=== PATIENT | male | born 1990 | race Caucasian/White ===

== ENCOUNTER 2016-11-23 19:58 | Emergency (ER) | payer OTHER ==
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
[2016-11-23 20:16] VITALS: BP 118/80; PULSE 83; TEMP 98.6; BMI 31.9
== END 2016-11-23 21:27 | disposition home or self-care (01) ==
LOC: FER 19:58
PROC: 2W3SX1Z Immobilization of Right Foot using Splint (ICD-10-PCS; principal; 2016-11-23)
DX: S93.401A Sprain of unspecified ligament of right ankle, initial encounter (principal); W20.8XXA Other cause of strike by thrown, projected or falling object, initial encounter; Y93.89 Activity, other specified; Y92.410 Unspecified street and highway as the place of occurrence of the external cause
CPT/HCPCS: 73610-TC-RT; 73630-TC-RT; 99281-25

== ENCOUNTER 2019-02-01 19:55 | Emergency (ER) | payer OTHER ==
--- NOTE | 2019-02-01 19:59 | PDOC ---
Rapid Medical Evaluation Time Seen by Provider: 02/01/19 19:57 Medical Evaluation: Allergies Allergy/AdvReac Type Severity Reaction Status Date / Time No Known Allergies Allergy Verified 11/23/16 20:08 02/01/19 19:57 CC: left eye pain after removing contact lenses PE: Left conjunctival erythema Orders: nothing Patient to proceed to ER for evaluation. Discharge Disposition - Diagnosis Redness of eye, left - Referrals Referrals: Jeanette Hicks MD [Primary Care Provider] - - Patient Instructions - Post Discharge Activity
[2019-02-01 20:11] VITALS: BP 121/68; PULSE 68; TEMP 98.2; BMI 25.0
[2019-02-01] MEDS ORDERED: TETRACAINE 0.5% OPHTH SOLN 2 ML BOTTLE ONE (20:54)
[2019-02-01] MEDS ORDERED: FLUORESCEIN NA 1 EA STRIP ONE (20:55)
--- NOTE | 2019-02-01 21:07 | PDOC ---
History of Present Illness - General Chief Complaint: Eye Problem Stated Complaint: Eye Problem Time Seen by Provider: 02/01/19 19:57 - History of Present Illness Initial Comments: 02/01/19 21:04 35 y/o M w/o CM presents for evaluation of L eye irritation after removing a contact lense Past History - Past Medical History Allergies/Adverse Reactions: Allergies Allergy/AdvReac Type Severity Reaction Status Date / Time No Known Allergies Allergy Verified 02/01/19 19:59 Home Medications: Ambulatory Orders Diclofenac Sodium [Voltaren -] 75 mg PO BID PRN #14 tablet. 11/23/16 Tobramycin 0.3% Ophth Soln [Tobrex Ophthalmic Solution -] 1 drop OS Q4HWA 5 Days #1 bottle 02/01/19 COPD: No - Psycho Social/Smoking Cessation Hx Smoking History: Never smoked Have you smoked in the past 12 months: No Hx Alcohol Use: No Drug/Substance Use Hx: No Substance Use Type: None Review of Systems - Review of Systems HEENTM: Yes: See HPI, Tearing *Physical Exam - Vital Signs Last Vital Signs Temp Pulse Resp BP Pulse Ox 98.2 F 68 16 121/68 9 L 02/01/19 20:00 02/01/19 20:00 02/01/19 20:00 02/01/19 20:00 02/01/19 20:00 - Physical Exam Comments: 02/01/19 21:05 L eye was instilled with tetracaine and stained with floricine, there is a very small corneal abrasion at the 6 o'clock position Medical Decision Making - Medical Decision Making 02/01/19 21:05 tobramycin for corneal abrasion Discharge - Discharge Information Problems reviewed: Yes Clinical Impression/Diagnosis: Redness of eye, left, Corneal abrasion due to contact lens Condition: Stable Disposition: HOME - Admission No - Follow up/Referral Referrals: Jeanette Hicsk MD [Primary Care Provider] - Leanna Combs MD [Staff Physician] - - Patient Discharge Instructions Patient Printed Discharge Instructions: Corneal Abrasion, DI for Corneal Abrasion Additional Instructions: Please use the antibiotic drops as directed and without fail follow up with optomology in 1-2 days. Return to the emergency room should symptoms worsen. - Post Discharge Activity
== END 2019-02-01 21:34 | disposition home or self-care (01) ==
LOC: JERFT 19:55 → JER 19:55 → JERFT 21:34
DX: S05.02XA Injury of conjunctiva and corneal abrasion without foreign body, left eye, initial encounter (principal); X58.XXXA Exposure to other specified factors, initial encounter; Y93.89 Activity, other specified; Y92.89 Other specified places as the place of occurrence of the external cause
CPT/HCPCS: 99282-25

== ENCOUNTER 2019-07-10 19:14 | Emergency (ER) | payer OTHER ==
[2019-07-10 19:30] VITALS: BP 126/81; PULSE 82; TEMP 98.1; BMI 27.2
--- NOTE | 2019-07-10 21:40 | PDOC ---
Documentation entered by Stella Harper SCRIBE, acting as scribe for Reza Lynch MD. Reza Lynch MD: This documentation has been prepared by the [place] Maria, SCRIBE, under my direction and personally reviewed by me in its entirety. I confirm that the documentation accurately reflects all work, treatment, procedures, and medical decision making performed by me. History of Present Illness - General Chief Complaint: Sore Throat Stated Complaint: SORE THROAT Time Seen by Provider: 07/10/19 19:20 History Source: Patient Exam Limitations: No Limitations - History of Present Illness Initial Comments: 07/10/19 19:29 The patient is a 28 year old male with no significant past medical history who presents to the emergency department with a sore throat. As per patient, he reports going to [place] last week and later began to develop cold-like symptoms which has since resolved with the exception of the sore throat. He reports taking tylenol with no relief of symptoms prompting him to the ER. Past History - Past Medical History Allergies/Adverse Reactions: Allergies Allergy/AdvReac Type Severity Reaction Status Date / Time No Known Allergies Allergy Verified 02/01/19 19:59 Home Medications: Ambulatory Orders Diclofenac Sodium [Voltaren -] 75 mg PO BID PRN #14 tablet. 11/23/16 Tobramycin 0.3% Ophth Soln [Tobrex Ophthalmic Solution -] 1 drop OS Q4HWA 5 Days #1 bottle 02/01/19 Ibuprofen [Ibu] 600 mg PO TID PRN #15 tablet 07/10/19 Pseudoephedrine HCl [Pseudoephedrine ER] 120 mg PO BID PRN #12 tablet.er 07/10/19 COPD: No - Psycho Social/Smoking Cessation Hx Smoking History: Never smoked Have you smoked in the past 12 months: No Hx Alcohol Use: Yes (OCCAS) Drug/Substance Use Hx: No Substance Use Type: None Review of Systems - Review of Systems Able to Perform ROS?: Yes Comments:: 07/10/19 19:29 GENERAL/CONSTITUTIONAL: No fever or chills. No weakness. HEAD, EYES, EARS, NOSE AND THROAT:+sore throat. No change in vision. No ear pain or discharge. CARDIOVASCULAR: No chest pain or shortness of breath. RESPIRATORY: No cough, wheezing, or hemoptysis. GASTROINTESTINAL: No nausea, vomiting, diarrhea or constipation. GENITOURINARY: No dysuria, frequency, or change in urination. MUSCULOSKELETAL: No joint or muscle swelling or pain. No neck or back pain. SKIN: No rash NEUROLOGIC: No headache, vertigo, loss of consciousness, or change in strength/sensation. ENDOCRINE: No increased thirst. No abnormal weight change. HEMATOLOGIC/LYMPHATIC: No anemia, easy bleeding, or history of blood clots. ALLERGIC/IMMUNOLOGIC: No hives or skin allergy. *Physical Exam - Physical Exam 07/10/19 19:30 GENERAL: Awake, alert, and fully oriented, in no acute distress HEAD: No signs of trauma EYES: PERRLA, EOMI, sclera anicteric, conjunctiva clear ENT: Auricles normal inspection, hearing grossly normal, nares patent, oropharynx clear without exudates. Moist mucosa. + maxillary tenderness NECK: Normal ROM, supple, no lymphadenopathy, JVD, or masses LUNGS: Breath sounds equal, clear to auscultation bilaterally. No wheezes, and no crackles HEART: Regular rate and rhythm, normal S1 and S2, no murmurs, rubs or gallops ABDOMEN: Soft, nontender, normoactive bowel sounds. No guarding, no rebound. No masses EXTREMITIES: Normal range of motion, no edema. No clubbing or cyanosis. No cor ds, erythema, or tenderness NEUROLOGICAL: Cranial nerves II through XII grossly intact. Normal speech, normal gait SKIN: Warm, Dry, normal turgor, no rashes or lesions noted. 07/11/19 06:23 Medical Decision Making - Medical Decision Making 07/11/19 06:22 sinusitis no evidence of pharyngitis nsaids decongestant PCP fu Discharge - Discharge Information Problems reviewed: Yes Clinical Impression/Diagnosis: Sinusitis Qualifiers: Sinusitis location: maxillary Chronicity: acute Recurrence: non-recurrent Qualified Code(s): J01.00 - Acute maxillary sinusitis, unspecified Condition: Good Disposition: HOME - Admission No - Additional Discharge Information Prescriptions: Ibuprofen [Ibu] 600 mg PO TID PRN #15 tablet PRN Reason: Pain Pseudoephedrine HCl [Pseudoephedrine ER] 120 mg PO BID PRN #12 tablet.er PRN Reason: congestion - Follow up/Referral - Patient Discharge Instructions Patient Printed Discharge Instructions: DI for Sinusitis - Post Discharge Activity
== END 2019-07-10 19:38 | disposition home or self-care (01) ==
LOC: FER 19:14
DX: J01.00 Acute maxillary sinusitis, unspecified (principal)
CPT/HCPCS: 99282-25

== ENCOUNTER 2022-06-03 08:04 | Emergency (ER) | payer OTHER ==
[2022-06-03 08:14] VITALS: BP 132/83; PULSE 95; RESP 20; TEMP 98.3; BMI 30.4
[2022-06-03] MEDS ORDERED: CEPHALEXIN MONOHYDRATE 500 MG CAPSULE (UD) PO ONE (09:20)
[2022-06-03] MEDS ORDERED: SULFAMETHOXAZOLE/TRIMETHOPRIM 800MG/160MG D.S. TABLET PO ONE (09:20)
[2022-06-03] MEDS ORDERED: ACETAMINOPHEN 500 MG TABLET (FP) PO ONE (09:43)
[2022-06-03] MEDS ORDERED: CEPHALEXIN MONOHYDRATE 500 MG CAPSULE (UD) ONE (09:53)
[2022-06-03] MEDS ORDERED: SULFAMETHOXAZOLE/TRIMETHOPRIM 800MG/160MG D.S. TABLET ONE (09:53)
== END 2022-06-03 10:12 | disposition home or self-care (01) ==
LOC: JER 08:04
PROC: 0H98XZZ Drainage of Buttock Skin, External Approach (ICD-10-PCS; principal; 2022-06-03)
DX: L02.31 Cutaneous abscess of buttock (principal)
CPT/HCPCS: 87070; 87205; 99283-25

== ENCOUNTER 2022-06-04 16:03 | Emergency (ER) | payer OTHER ==
[2022-06-04 16:22] VITALS: BP 124/71; PULSE 79; RESP 18; TEMP 98.3; BMI 30.4
== END 2022-06-04 18:01 | disposition home or self-care (01) ==
LOC: JERFT 16:03
DX: Z48.00 Encounter for change or removal of nonsurgical wound dressing (principal)
CPT/HCPCS: 99281-25

== ENCOUNTER 2022-06-06 08:25 | Emergency (ER) | payer OTHER ==
[2022-06-06 08:33] VITALS: BP 148/67; PULSE 68; RESP 19; TEMP 98; BMI 30.4
== END 2022-06-06 08:58 | disposition home or self-care (01) ==
LOC: JERFT 08:25
DX: Z48.00 Encounter for change or removal of nonsurgical wound dressing (principal)
CPT/HCPCS: 99281-25

== ENCOUNTER 2023-07-21 07:47 | Emergency (ER) | payer OTHER ==
[2023-07-21 07:54] VITALS: BP 115/61; PULSE 60; RESP 20; TEMP 97.6; BMI 29.2
[2023-07-21] MEDS ORDERED: ACETAMINOPHEN 325 MG TABLET (FP) ONE (08:31)
[2023-07-21] MEDS: ACETAMINOPHEN 500 MG TABLET (FP) PO ONE (08:35)
[2023-07-21] MEDS ORDERED: LIDOCAINE 2.5%/PRILOCAINE 2.5% (5 Gram/TUBE) TP ONE (09:08)
[2023-07-21] MEDS: LIDOCAINE 2.5%/PRILOCAINE 2.5% 30 GRAM TUBE TP ONE (09:12)
== END 2023-07-21 09:27 | disposition home or self-care (01) ==
LOC: JER 07:47
DX: M79.644 Pain in right finger(s) (principal); M79.645 Pain in left finger(s); L24.5 Irritant contact dermatitis due to other chemical products; Y99.0 Civilian activity done for income or pay
CPT/HCPCS: 99283-25

== ENCOUNTER 2023-12-13 13:07 | Emergency (ER) | payer OTHER ==
[2023-12-13 13:17] VITALS: BP 126/85; PULSE 78; RESP 20; TEMP 98.7; BMI 28.8
[2023-12-13] MEDS ORDERED: DEXAMETHASONE SOD PHOSPHATE 10 MG/1 ML VIAL ONE (14:24)
[2023-12-13] MEDS: DEXAMETHASONE SOD PHOSPHATE 10 MG/1 ML VIAL IM ONE (14:28)
== END 2023-12-13 14:52 | disposition home or self-care (01) ==
LOC: JERFT 13:07
PROC: 3E023GC Introduction of Other Therapeutic Substance into Muscle, Percutaneous Approach (ICD-10-PCS; principal; 2023-12-13)
DX: L23.7 Allergic contact dermatitis due to plants, except food (principal)
CPT/HCPCS: 99284-25; J1100